=== PATIENT | female | born 1965 | race Caucasian/White ===

== ENCOUNTER → 2016-12-17 | Outpatient (CLI) | payer OTHER | LOC: BMCIMAGING 10:59 | PROVIDERS: ATTEND Podiatrist Foot & Ankle Surgery | DX: M19.071 Primary osteoarthritis, right ankle and foot (principal); M77.32 Calcaneal spur, left foot ==

== ENCOUNTER → 2017-05-25 | Outpatient (CLI) | payer OTHER | LOC: FIMAGING 08:57 | PROVIDERS: ATTEND Internal Medicine Hematology & Oncology | DX: Z13.820 Encounter for screening for osteoporosis (principal); M85.89 Other specified disorders of bone density and structure, multiple sites; Z85.3 Personal history of malignant neoplasm of breast; Z92.21 Personal history of antineoplastic chemotherapy ==

== ENCOUNTER → 2017-05-27 | Outpatient (CLI) | payer OTHER | LOC: BMCIMAGING 10:10 | PROVIDERS: ATTEND Physician Assistant | DX: S82.091A Other fracture of right patella, initial encounter for closed fracture (principal); M17.11 Unilateral primary osteoarthritis, right knee ==

== ENCOUNTER → 2017-06-23 | Outpatient (CLI) | payer OTHER | LOC: BMCIMAGING 16:15 | PROVIDERS: ATTEND Podiatrist Foot & Ankle Surgery | DX: M79.672 Pain in left foot (principal) ==

== ENCOUNTER → 2017-07-13 | Outpatient (CLI) | payer OTHER | LOC: BMCIMAGING 14:28 | PROVIDERS: ATTEND Podiatrist Foot & Ankle Surgery | DX: Z47.89 Encounter for other orthopedic aftercare (principal) ==

== ENCOUNTER → 2017-07-15 | Outpatient (CLI) | payer OTHER | LOC: BMCIMAGING 11:58 | PROVIDERS: ATTEND Podiatrist Foot & Ankle Surgery | DX: M79.672 Pain in left foot (principal); Z98.890 Other specified postprocedural states ==

== ENCOUNTER → 2017-08-05 | Outpatient (CLI) | payer OTHER | LOC: BMCIMAGING 15:53 | PROVIDERS: ATTEND Podiatrist Foot & Ankle Surgery | DX: Z09 Encounter for follow-up examination after completed treatment for conditions other than malignant neoplasm (principal); Z98.890 Other specified postprocedural states ==

== ENCOUNTER → 2017-08-27 | Outpatient (CLI) | payer OTHER | LOC: FIMAGING 16:00 | PROVIDERS: ATTEND Podiatrist Foot & Ankle Surgery | DX: I82.442 Acute embolism and thrombosis of left tibial vein (principal); Z98.890 Other specified postprocedural states | CPT/HCPCS: 93971-PO ==

== ENCOUNTER → 2017-09-21 | Outpatient (CLI) | payer OTHER | LOC: BMCIMAGING 11:10 | PROVIDERS: ATTEND Podiatrist Foot & Ankle Surgery | DX: Z09 Encounter for follow-up examination after completed treatment for conditions other than malignant neoplasm (principal); Z98.890 Other specified postprocedural states ==

== ENCOUNTER → 2017-09-30 | Outpatient (CLI) | payer OTHER | LOC: CIMAGING 13:59 | PROVIDERS: ATTEND Family Medicine | DX: I82.442 Acute embolism and thrombosis of left tibial vein (principal) | CPT/HCPCS: 93970-PO ==

== ENCOUNTER → 2017-11-10 | Outpatient (CLI) | payer OTHER | LOC: FIMAGING 13:21 | PROVIDERS: ATTEND Physician Assistant | DX: Z01.818 Encounter for other preprocedural examination (principal); M17.11 Unilateral primary osteoarthritis, right knee ==

== ENCOUNTER → 2017-11-16 | Outpatient (CLI) | payer OTHER | LOC: BMCIMAGING 10:39 | PROVIDERS: ATTEND Podiatrist Foot & Ankle Surgery | DX: Z09 Encounter for follow-up examination after completed treatment for conditions other than malignant neoplasm (principal); Z98.890 Other specified postprocedural states ==

== ENCOUNTER 2017-11-29 05:55 | Observation (INO) | payer OTHER ==
[2017-11-29] MEDS ORDERED: ROPIVACAINE 0.2% 80 MG, EPINEPHrine 0.2 MG, KETOROLAC TROMETHAMINE 30 MG, morphINE 10 M... IU ONE (06:00)
[2017-11-29] MEDS ORDERED: TRANEXAMIC ACID 1,000 MG in NS (SYRINGE) 50 ML IV ONE (06:00)
[2017-11-29] MEDS ORDERED: FAMOTIDINE 20 MG TAB PO ONE (06:16)
[2017-11-29] MEDS ORDERED: ceFAZolin 2 GM/SWFI 2 GM/20 ML SYR IVP ONE (06:16)
[2017-11-29] MEDS ORDERED: ACETAMINOPHEN 325 MG TAB PO ONE (06:16)
--- NOTE | 2017-11-29 06:21 | PDHPUP ---
History & Physical Update H&P update statement: This history and physical update is based on an assessment of the patient which was completed after admission or registration (within 24 hours), but prior to the surgery/procedure. H&P update: no change in patient's condition since H&P completed
--- NOTE | 2017-11-29 06:22 | PDIAF ---
- Diagnosis Diagnosis: right knee partial djd Code Status: Full Code - Medication Management Discharge Medications: Medications to Continue on Transfer Cyclobenzaprine [Flexeril 10 MG (*)] 10 - 20 mg PO HS 11/18/17 [Last Taken Unknown] Meloxicam 15 mg PO HS 11/18/17 [Last Taken Unknown] Pregabalin [Lyrica 75mg (*)] 150 mg PO DAILY18 11/18/17 [Last Taken Unknown] Rivaroxaban [Xarelto 10mg (*)] 20 mg PO DAILY18 11/18/17 [Last Taken Unknown] traMADol [Ultram 50 mg (*)] 100 mg PO HS 11/18/17 [Last Taken Unknown] Discharge Medications: Refer to the Discharge Home Medication list for PRN reason. - Orders Services needed: Physical Therapy Diet Recommendation: no restrictions on diet Diet Texture: Regular Texture Diet Activity/Weight Bearing Restrictions: wbat. rom as vlad. keep dressing. if dressing becomes saturated, change daily. may shower without bandage. f/u at two weeks. seek attn for increasing pain, chest pain, shortness of breath, drainage or other focal complaint - Follow Up Care Current Providers and Referrals: WILBERTO QUINTANILLA MD [Primary Care Provider] -
[2017-11-29] MEDS ORDERED: ceFAZolin 1 GM/5 ML SYR ONE (06:34)
[2017-11-29] MEDS ORDERED: THROMBIN (BOVINE) 5,000 UNIT VIAL TP ONE (06:34)
[2017-11-29] MEDS ORDERED: CALCIUM CHLORIDE 1 GM/10 ML INJ ONE (06:34)
--- NOTE | 2017-11-29 07:56 | PDANEPAE ---
ANE History of Present Illness right knee resurfacing ANE Past Medical History - Cardiovascular History Hx Hypertension: No Hx Arrhythmias: No Hx Chest Pain: No Hx Coronary Artery / Peripheral Vascular Disease: No Hx CHF / Valvular Disease: No Hx Palpitations: No - Pulmonary History Hx COPD: No Hx Asthma/Reactive Airway Disease: No Hx Recent Upper Respiratory Infection: No Hx Oxygen in Use at Home: No Hx Sleep Apnea: No Sleep Apnea Screening Result - Last Documented: Negative - Neurologic History Hx Cerebrovascular Accident: No Hx Seizures: No Hx Dementia: No Neurologic History Comment: CONCUSSION 2010 - W/RESIDUAL VERTIGO. OCCAS MIGRAINES - Endocrine History Hx Diabetes: No Hypothyroid: No Hyperthyroid: No - Renal History Hx Renal Disorders: No - Liver History Hx Hepatic Disorders: No - Neurological & Psychiatric Hx Hx Neurological and Psychiatric Disorders: No - Cancer History Hx Cancer: Yes Cancer History Comment: BREAST CA - Congenital Disorder History Hx Congenital Disorders: No - GI History Hx Gastrointestinal Disorders: No - Other Health History Other Health History: DVT LLE - 08/2017 - TAKES XARELTO - Chronic Pain History Chronic Pain: Yes (ANKLE, FOOT, KNEE) - Surgical History Prior Surgeries: 06/2018 FOOT & ANKLE L. BREAST DAWSON MASTECTOMY. R AXILLARY NODES. CARPAL TUNNEL R. R THUMB. R SHOULDER. BREAST RECONSTRUCTION X2 ANE Review of Systems Review of systems is: negative Review of Systems: - Exercise capacity Exercise capacity: >=4 METS METS (RN): 4 METS ANE Patient History - Allergies Allergies/Adverse Reactions: adhesive tape Allergy (Verified 11/29/17 07:04) BLISTERS - Home Medications Home Medications: Cyclobenzaprine [Flexeril 10 MG (*)] 10 - 20 mg PO HS 11/18/17 [Last Taken 11/28] Meloxicam 15 mg PO HS 11/18/17 [Last Taken 11/24/17] Pregabalin [Lyrica 75mg (*)] 150 mg PO DAILY18 11/18/17 [Last Taken 11/28/17] Rivaroxaban [Xarelto 10mg (*)] 20 mg PO DAILY18 11/18/17 [Last Taken 11/22/17] traMADol [Ultram 50 mg (*)] 100 mg PO HS 11/18/17 [Last Taken 11/24/17] oxyCODONE IR [Oxycodone Ir (*)] 5 mg PO Q4 PRN 11/29/17 [Last Taken 11/28/17 22: 00] - NPO status NPO Status: no food or drink >8 hours NPO Since - Liquids (Date): 11/28/17 NPO Since - Liquids (Time): 23:00 NPO Since - Solids (Date): 11/28/17 NPO Since - Solids (Time): 19:00 - Anes Hx Anes Hx: no prior problems - Smoking Hx Smoking Status: Former smoker - Alcohol Use Alcohol Use: Occasionally - Family Anes Hx Family Anes Hx: none ANE Labs/Vital Signs - Vital Signs Vital Signs: reviewed preoperatively; see RN documention for details Blood Pressure: 93/63 Heart Rate: 88 Respiratory Rate: 16 O2 Sat (%): 96 Height: 165.1 cm Weight: 99.79 kg ANE Physical Exam - Airway Neck exam: FROM Mallampati Score: Class 2 - Pulmonary Pulmonary: no respiratory distress - Cardiovascular Cardiovascular: regular rate and rhythym - ASA Status ASA Status: II ANE Anesthesia Plan Anesthesia Plan: spinal Regional Anesthesia: adductor canal FNB
[2017-11-29] MEDS ORDERED: MIDAZOLAM 2 MG/2 ML VIAL IVP ONE (08:04)
[2017-11-29] MEDS ORDERED: MIDAZOLAM 2 MG/2 ML VIAL ONE (08:07)
[2017-11-29] MEDS ORDERED: PROPOFOL/EMULSION 500 MG/50 ML BOTTLE IV ONE ×2 (08:23→09:10)
[2017-11-29] MEDS ORDERED: LIDOCAINE 2% 5 ML SDV ONE (08:23)
[2017-11-29] MEDS ORDERED: BUPIVACAINE 0.5% 30 ML SDV ONE (08:25)
[2017-11-29] MEDS ORDERED: diphenhydrAMINE 25 MG CAP PO PRN (08:29)
[2017-11-29] MEDS ORDERED: CYCLOBENZAPRINE 10 MG TAB PO PRN (08:29)
[2017-11-29] MEDS ORDERED: TEMAZEPAM 15 MG CAP PO PRN (08:29)
[2017-11-29] MEDS ORDERED: PROMETHAZINE HCL 25 MG SUPPR PR PRN (08:29)
[2017-11-29] MEDS ORDERED: DIPHENOXYLATE/ATROPINE LOMOTIL 1 TAB PO PRN (08:29)
[2017-11-29] MEDS ORDERED: METOCLOPRAMIDE 10 MG/2 ML VIAL IVP PRN (08:29)
[2017-11-29] MEDS ORDERED: ONDANSETRON 4 MG/2 ML VIAL IVP PRN ×2 (08:29→10:23)
[2017-11-29] MEDS ORDERED: PROMETHAZINE HCL 25 MG/ML INJ IVP PRN ×2 (08:29→10:23)
[2017-11-29] MEDS ORDERED: traMADol 50 MG TAB PO PRN (08:29)
[2017-11-29] MEDS ORDERED: POLYETHYLENE GLYCOL 3350 17 GM PKT PO PRN (08:29)
[2017-11-29] MEDS ORDERED: MAGNESIUM HYDROXIDE 30 ML UDCUP PO PRN (08:29)
[2017-11-29] MEDS ORDERED: ONDANSETRON DISINTEGRATING 4 MG TAB PO PRN (08:29)
[2017-11-29] MEDS ORDERED: LACTULOSE 20 GM/30 ML UDCUP PO PRN (08:29)
[2017-11-29] MEDS ORDERED: BISACODYL 10 MG SUPP PR PRN (08:29)
[2017-11-29] MEDS ORDERED: TRANEXAMIC ACID 650 MG TAB PO SCH (08:30)
[2017-11-29] MEDS ORDERED: LR 1,000 ML IV SCH (08:30)
[2017-11-29] MEDS ORDERED: fentaNYL 100 MCG/2 ML INJ ONE (08:57)
[2017-11-29] MEDS ORDERED: LR 1,000 ML IV ONE (09:15)
[2017-11-29] MEDS ORDERED: ALBUTEROL 3 ML DEYVIAL IH PRN (10:23)
[2017-11-29] MEDS ORDERED: oxyCODONE IR 5 MG TAB PO PRN (10:23)
[2017-11-29] MEDS ORDERED: NALOXONE HCL 0.4 MG/ML INJ IVP PRN (10:23)
[2017-11-29] MEDS ORDERED: fentaNYL 100 MCG/2 ML INJ IVP PRN (10:23)
[2017-11-29] MEDS ORDERED: ACETAMINOPHEN 500 MG TAB PO PRN (10:23)
--- NOTE | 2017-11-29 10:23 | POSTANESTH ---
Post Anesthetic Evaluation Cardiovascular Status: Normal, Stable Respiratory Status: Normal, Stable Level of Consciousness/Mental Status: Can Participate in Eval Pain Control: Adequate, Prn Tx Ordered Nausea/Vomiting Control: Adequate, Prn Tx Ordered Complications Possibly Related to Anesthesia: None Noted
[2017-11-29] MEDS: SENNOSIDES/DOCUSATE SODIUM TAB PO SCH ×2 (12:41→20:54)
[2017-11-29] MEDS: ACETAMINOPHEN 325 MG TAB PO SCH ×2 (12:59→18:40)
[2017-11-29] MEDS ORDERED: ceFAZolin 2 GM/DEXTROSE 100 ML IV SCH (14:00)
[2017-11-29] MEDS: oxyCODONE IR 5 MG TAB PO PRN ×3 (14:40→18:41)
[2017-11-29] MEDS: TRANEXAMIC ACID 650 MG TAB PO SCH ×2 (14:40→22:34)
[2017-11-29] MEDS: ceFAZolin 2 GM/SWFI 2 GM/20 ML SYR IVP SCH (15:24)
--- NOTE | 2017-11-29 17:38 | SOAPPROG ---
SOAP Progress Note Assessment/Plan: Assessment: s/p partial tka Plan:d/c home tomorrow no acute issues xrays stable 11/29/17 17:37 Subjective: mild pain no cp or sob or nausea Objective: Vital Signs Temp Pulse Resp BP Pulse Ox 36.5 C 67 16 116/75 98 11/29/17 15:40 11/29/17 15:40 11/29/17 15:40 11/29/17 15:40 11/29/17 15:40 11/28/17 11/29/17 11/30/17 05:59 05:59 05:59 Intake Total 1275 Output Total 430 Balance 845 dressing intact intact pf,df,ehl toes warm and pink neg [facility] xrays anatomic no fx or lucency ICD10 Worksheet Patient Problems: Problems Problem Status Onset Arthritis of knee Acute - ICD10 Problem Qualifiers (1) Arthritis of knee
[2017-11-29] MEDS ORDERED: PREGABALIN 75 MG CAP PO SCH (18:00)
[2017-11-29] MEDS: FAMOTIDINE 20 MG TAB PO SCH (20:54)
[2017-11-29] MEDS ORDERED: CALCIUM CARBONATE 500 MG CHEWABLE TAB PO PRN (22:44)
[2017-11-30] MEDS: ACETAMINOPHEN 325 MG TAB PO SCH ×3 (00:16→11:41)
[2017-11-30] MEDS: ceFAZolin 2 GM/SWFI 2 GM/20 ML SYR IVP SCH (00:17)
[2017-11-30] MEDS: TRANEXAMIC ACID 650 MG TAB PO SCH (05:38)
--- NOTE | 2017-11-30 07:05 | PDIAF ---
- Diagnosis Diagnosis: right knee partial djd Code Status: Full Code - Medication Management Discharge Medications: Medications to Continue on Transfer Cyclobenzaprine [Flexeril 10 MG (*)] 10 - 20 mg PO HS 11/18/17 [Last Taken 11/28] Meloxicam 15 mg PO HS 11/18/17 [Last Taken 11/24/17] Pregabalin [Lyrica 75mg (*)] 150 mg PO DAILY18 11/18/17 [Last Taken 11/28/17] Rivaroxaban [Xarelto 10mg (*)] 20 mg PO DAILY18 11/18/17 [Last Taken 11/22/17] traMADol [Ultram 50 mg (*)] 100 mg PO HS 11/18/17 [Last Taken 11/24/17] oxyCODONE IR [Oxycodone Ir (*)] 5 mg PO Q4 PRN 11/29/17 [Last Taken 11/28/17 22: 00] oxyCODONE IR [Oxycodone Ir (*)] 5 - 10 mg PO Q3HRS PRN #60 tab 11/30/17 [Last Taken Unknown] Discharge Medications: Refer to the Discharge Home Medication list for PRN reason. - Orders Services needed: Physical Therapy Diet Recommendation: no restrictions on diet Diet Texture: Regular Texture Diet Activity/Weight Bearing Restrictions: wbat. rom as vlad. keep dressing. if dressing becomes saturated, change daily. may shower without bandage. f/u at two weeks. seek attn for increasing pain, chest pain, shortness of breath, drainage or other focal complaint Additional Instructions: wbat rom as vlad keep dressing if dressing becomes saturated, change daily may shower without bandage f/u at two weeks seek attn for increasing pain, chest pain, shortness of breath, drainage or other focal complaint - Follow Up Care Current Providers and Referrals: WILBERTO QUINTANILLA MD [Primary Care Provider] - Melo Campbell MD [Medical Doctor] -
--- NOTE | 2017-11-30 07:18 | GDS ---
[f rep st] DISCHARGE SUMMARY ADMIT DIAGNOSIS: Right knee, partial knee arthritis. POSTOPERATIVE DIAGNOSIS: Right knee, partial knee arthritis. PROCEDURE: Right knee partial medial MAKOplasty/partial replacement. HISTORY OF PRESENT ILLNESS: The patient is a 52-year-old woman who has end-stage medial compartment arthritis to her right knee. She has failed all attempts at conservative management. Clinical and r adiographic features are consistent with this. She has interference of her activities of daily livin g, has failed all conservative measures. I have recommended operative intervention. I have outlined the surgical procedure at length. She wishes to proceed. Appropriate consent was signed and placed in the patient's chart. HOSPITAL COURSE: Patient was admitted to the hospital floor after uncomplicated partial knee replace ment. She tolerated the procedure well. Overnight she had slight issues of pain control. Otherwise no complications. At the time of discharge, she is tolerating an oral diet, pain is well controlled on oral medicines, she is voiding without difficulty. Dressing is clean, dry, and intact. She has no calf swelling, tenderness, and negative Jessi's bilaterally. X-rays are stable with anatomic alig nment. There is no fracture or lucency. DISCHARGE ACTIVITY: She is weightbearing as tolerated. Range of motion as tolerated. Daily dressin g changes. May shower without the bandage. No soaking or immersion. FOLLOWUP: In 2 weeks. Seek attention for increasing redness, swelling, drainage, discharge, or othe r focal complaints. DISCHARGE MEDICATIONS: Xarelto 10 mg p.o. daily as previous, and oxycodone 5 mg 1-2 every 4 hours p. r.n. pain. /[id number]/MODL
[2017-11-30 08:16] VITALS: BP 101/65
[2017-11-30] MEDS: FAMOTIDINE 20 MG TAB PO SCH (08:51)
[2017-11-30] MEDS: SENNOSIDES/DOCUSATE SODIUM TAB PO SCH (08:52)
[2017-11-30] MEDS ORDERED: RIVAROXABAN 10 MG TAB PO SCH (09:00)
[2017-11-30] MEDS: oxyCODONE IR 5 MG TAB PO PRN (11:40)
--- NOTE | 2017-11-30 12:03 | ASMTCMCOM ---
CM Note CM Note Notes: PT s/p partial knee replacement PT rec [facility]. Pt agreeable to [facility], address/phone verified. [facility] sent orders in [employer]. Pt d/c with [facility] PT. Date Signed: 11/30/2017 12:03 PM Electronically Signed By:LEI Hughes
--- NOTE | 2017-11-30 13:44 | ASDISCHSUM ---
Discharge Information Plan Status:Home with Home Health Medically Cleared to Leave: Discharge Date:11/30/2017 12:45 PM CM D/C Disposition:Home Health Service ADT D/C Disposition:Home Health Service Projected Discharge Date:11/30/2017 11:00 AM Transportation at D/C: Discharge Delay Reason: Follow-Up Date:11/30/2017 11:00 AM Discharge Slot: Final Diagnosis: Placement Information Referral Type:*Home Health Care Services Referral ID:[id number] Provider Name:[facility] [place] Address 1:[address] [address] Address 2: City:[place] Selection Factors: State:[place] Patient Contact Information Contact Name:DAVID Relationship:Father Address:[address] City:[place] Alternate Phone: State/Zip Code:[place] [address] Email: Financial Information Financial Class:HMO and PPO Plans Primary Plan Desc:H[employer] Primary Plan Number:[id number] Secondary Plan Desc: Secondary Plan Number: Assessment Information [facility] CM Progress Note CM Note CM Note Notes: PT s/p partial knee replacement PT rec [facility]. Pt agreeable to [facility], address/phone verified. [facility] sent orders in [employer]. Pt d/c with [facility] PT. Date Signed: 11/30/2017 12:03 PM Electronically Signed By:LEI Hughes Intervention Information
--- NOTE | 2017-12-01 07:15 | GOP ---
[f rep st] OPERATIVE REPORT DATE OF OPERATION: 11/29/2017 SURGEON: Melo Campbell MD CARAMEL CANDY MAKER HELPER: Avery Solomon, BOARD CERTIFIED FAMILY PHYSICIAN, [facility]. contact center assistant was medical necessity for the entirety of the case. PREOPERATIVE DIAGNOSIS: Right knee medial compartment arthritis. POSTOPERATIVE DIAGNOSIS: Right knee medial compartment arthritis. PROCEDURE PERFORMED: Right knee partial medial meniscectomy-MAKOplasty. FINDINGS: SPECIMENS: None. ESTIMATED BLOOD LOSS: 100 cc. DESCRIPTION OF PROCEDURE: The patient was identified in the preanesthesia area. The right knee cole rly demarcated as the operative site with indelible marker. She was given 2 g of Ancef intravenously en route to the operative suite. In the OR, general endotracheal anesthesia was administered. Attention was turned to the right knee, which was sterilely prepped and draped in usual fashion. A s guille anesthetic was placed, followed by sedation. Appropriate time-out procedure was carried out. The limb was then sterilely prepped and draped in usual fashion. The limb was exsanguinated Esmarch bandage. Tourniquet inflated to 275 mmHg. Standard anterior midline incision was made. Thick subcutaneous flaps were elevated, followed by med ial parapatellar arthrotomy. The knee was brought into a flexed position. There was primarily isola yamile degenerative change through the medial compartment. [place] was made to proceed with medial com partment arthroplasty. Two pins were then placed through the incision into the medial femur as was t he femoral check point. Separate percutaneous incision was placed over the tibia, and 2 pins placed here, and a tibial checkpoint was placed. All bony landmarks were entered into the computer in stand vincent fashion. The components were then adjusted and positioned with the MAKOplasty software in the co rrect position. Using the MAKOplasty robot, resections were made for a size 3 femur and size 3 tibia . Trial component was replaced. There was tightness over the posterior aspects, so the tibial slope was increased and resection was made through the tibia. Trial components were then placed with a 3 x 8 mm polyethylene. This allowed appropriate presybeterian of the balance across the knee for full fl exion-extension without tracking issues to the components. The surfaces were thoroughly cleansed and dried. The tibial femoral components were cemented into position and all marginal cement withdrawn, and a 3 x 8 mm polyethylene spacer was placed and confirmed to be fully seated. The wound was copiously irrigated. The medial parapatellar arthrotomy closed using #1 Ethibond. The deep tissues sprayed with a platelet-rich plasma solution and the knee instilled with a joint cockta il of ropivacaine, morphine, Toradol, and epinephrine. The subcutaneous tissue closed using 2-0 Mcpherson cryl and the skin stapled. A sterile dressing was applied, followed by Cryo/Cuff and Tai wrap. The patient was awakened, extubated, taken to recovery room in good and stable condition. OPERATIVE INDICATION: The patient is a 52-year-old woman who has end-stage arthritis to the medial c ompartment of her right knee. She has very mild arthritis to the patellofemoral and lateral compartm ents. Given her age and clinical and radiographic features, I recommend a partial knee replacement a s the best treatment option. She wished to proceed. Appropriate consent was signed and placed in th e patient's chart. TOTAL TOURNIQUET TIME: 40 minutes. COMPLICATIONS: None. IMPLANTS: MAKOplasty Restoris medial femoral component size 3, size 3 tibial component, and 3 x 8 mm polyethylene. DISPOSITION: To the recovery room, then the floor. She will be weightbearing, range of motion as to lerated. Follow standard postoperative recovery. /[id number]/MODL
== END 2017-11-30 12:45 | disposition home health service (06) ==
LOC: INTOOBSV 05:55 → F3N 05:55
PROVIDERS: ADMIT Orthopaedic Surgery; ATTEND Orthopaedic Surgery
DX: M17.11 Unilateral primary osteoarthritis, right knee (principal); Z79.01 Long term (current) use of anticoagulants; Z86.718 Personal history of other venous thrombosis and embolism; Z85.3 Personal history of malignant neoplasm of breast; Z87.891 Personal history of nicotine dependence; Z90.13 Acquired absence of bilateral breasts and nipples
CPT/HCPCS: 20985; 27446; 73560; 97110; 97116; 97161; 97165; 97530; 97535; G0378; C1713; J0171; J0690; J1885; J2250; J2270; J2704; J2795; J3010

== ENCOUNTER → 2018-01-03 | Outpatient (CLI) | payer OTHER | LOC: FIMAGING 15:45 | PROVIDERS: ATTEND Podiatrist Foot & Ankle Surgery | DX: M96.89 Other intraoperative and postprocedural complications and disorders of the musculoskeletal system (principal); M77.32 Calcaneal spur, left foot; M24.842 Other specific joint derangements of left hand, not elsewhere classified ==

== ENCOUNTER → 2018-01-11 | Outpatient (CLI) | payer OTHER | LOC: BMCIMAGING 10:04 | PROVIDERS: ATTEND Physician Assistant | DX: Z96.651 Presence of right artificial knee joint (principal) ==

== ENCOUNTER → 2018-04-01 | Outpatient (CLI) | payer OTHER | LOC: FIMAGING 13:53 | PROVIDERS: ATTEND Podiatrist Foot & Ankle Surgery | DX: Z98.890 Other specified postprocedural states (principal); Z96.7 Presence of other bone and tendon implants ==

== ENCOUNTER → 2018-05-23 | Outpatient (CLI) | payer OTHER | LOC: FIMAGING 14:26 | PROVIDERS: ATTEND Physician Assistant | DX: Z47.1 Aftercare following joint replacement surgery (principal); Z96.651 Presence of right artificial knee joint ==

== ENCOUNTER → 2018-08-25 | Outpatient (CLI) | payer OTHER | LOC: BMCIMAGING 08:38 | PROVIDERS: ATTEND Podiatrist Foot & Ankle Surgery | DX: S92.002D Unspecified fracture of left calcaneus, subsequent encounter for fracture with routine healing (principal) ==

== ENCOUNTER → 2018-09-03 | Outpatient (CLI) | payer OTHER | LOC: FIMAGING 10:22 | PROVIDERS: ATTEND Podiatrist Foot & Ankle Surgery | DX: M25.872 Other specified joint disorders, left ankle and foot (principal); R60.0 Localized edema; M79.9 Soft tissue disorder, unspecified; M72.2 Plantar fascial fibromatosis; S93.492A Sprain of other ligament of left ankle, initial encounter; Z98.890 Other specified postprocedural states ==

== ENCOUNTER 2019-01-11 00:48 | Emergency (ER) | payer OTHER | END 2019-01-11 03:57 | disposition home or self-care (01) ==